=== PATIENT | female | born 1975 | race African-American/Black ===

== ENCOUNTER 2019-10-06 13:14 | Emergency (ER) | payer OTHER ==
[~2019-10-06] VITALS: Ht 165.1 cm; Wt 108.9 kg
[~2019-10-06 13:14] MED LIST: CITRATE OF MAG296 ML PO; NOHOMEMEDICATIONS; NORCO 5-325 TA1 EACH PO; ZOFRAN ODT4 MG PO
[2019-10-06] MEDS ORDERED: TRIAMTERENE-HC1 EAC2 PO (14:06)
[2019-10-06] MEDS ORDERED: IBU800 MG PO (14:07)
[2019-10-06 14:21] LABS: URINE BILIRUBIN NEGATIVE (Negative); URINE BLOOD NEGATIVE (Negative); URINE CLARITY CLEAR; URINE COLOR YELLOW; URINE GLUCOSE-RANDOM* 3+ (Negative); URINE KETONES NEGATIVE (Negative); URINE LEUKOCYTES-REFLEX NEGATIVE (Negative); URINE NITRITE-REFLEX NEGATIVE (Negative); URINE PROTEIN (DIPSTICK) NEGATIVE (Negative); URINE UROBILINOGEN 0.2 E.U./dl (0.2-1.0)
[2019-10-06 14:43] LABS: ABSOLUTE NEUTROPHILS 4.5 thou/uL (1.4-8.2); EOSINOPHILS 2.4 % (0.0-3.0); HEMATOCRIT 38.1 % (37.0-47.0); HEMOGLOBIN 12.9 gm/dL (12.0-15.0); MCH 30.3 pg (26.0-34.0); MCV 89.1 fL (80.0-100.0); MONOCYTES 7.1 % (1.0-8.0); PLATELET COUNT 303 thou/uL (150-400); POLYS 62.5 % (36.0-66.0); RBC 4.28 mil/uL (4.20-5.00); RDW 13.1 % (10.5-14.5); WBC 7.2 thou/uL (4.0-11.0)
[2019-10-06 14:50] LABS: ANION GAP 7 mmol/L (7-16); BUN 11 mg/dL (7-18); CHLORIDE 95 mmol/L (98-107); CO2 26 mmol/L (21-32); CREATININE 0.9 mg/dL (0.6-1.0); GLUCOSE 402 mg/dL (74-106); POTASSIUM 3.8 mmol/L (3.5-5.1); SODIUM 128 mmol/L (136-145)
[2019-10-06 14:59] LABS: ALBUMIN 3.5 g/dL (3.4-5.0); SGOT 12 U/L (15-37); SGPT 11 U/L (30-65); TOTAL BILIRUBIN 0.3 mg/dL (<0.1-1.0); TROPONIN-I <0.06 ng/mL (<0.06)
--- NOTE | 2019-10-06 15:55 | EKG ---
[facility] [place] [address] ELECTROCARDIOGRAM REPORT Name: SHELLIE COHEN Room #: [facility]#: [id number] Admission: 10/06/19 Attend Phys: Discharge: Date of : 71 Report #: [id number] THIS REPORT FOR: cc: Catherine Schulte MD, Cora A. MD Lundgren, Craig H. MD [facility] ~ THIS REPORT FOR: //name// [facility] ED Test Date: 2019-10-06 Test Time: 14:07:30 Pat Name: SHELLIE COHEN Department: Room: Gender: F Cook Helper: VALERIA : 1975 Requested By: Candy Ely Order Number: [id number] MD: Scar Eddy Measurements Intervals [place] Rate: 80 P: 46 W[place]: 155 QRS: 20 QRSD: 85 T: 12 QT: 395 QTc: 456 Interpretive Statements Sinus rhythm Normal Compared to ECG 08/18/2015 21:03:42 T-wave abnormality no longer present Electronically Signed On 10-06-2019 15:53:53 CDT by Scar Eddy [email or web address] <ELECTRONICALLY SIGNED> By: Scar Eddy MD, [facility] 10/06/19 1553 [id number] 140 Scar Eddy MD, [facility] /EPI
[2019-10-06] MEDS ORDERED: METFORMIN HCL500 MG PO (17:17)
[2019-10-06 17:54] VITALS: BP 119/80
== END 2019-10-06 17:54 | disposition home or self-care (01) ==
LOC: ER 13:14
PROVIDERS: Physician Assistant
DX: R53.1 Weakness (principal); R55 Syncope and collapse; R42 Dizziness and giddiness; R20.0 Anesthesia of skin; R20.2 Paresthesia of skin; R51 Headache; R25.1 Tremor, unspecified; I10 Essential (primary) hypertension; Z79.899 Other long term (current) drug therapy

== ENCOUNTER 2020-03-30 19:17 | Emergency (ER) | payer OTHER ==
[~2020-03-30] VITALS: Ht 162.6 cm; Wt 108.9 kg
[~2020-03-30 19:17] MED LIST changes: +IBU800 MG PO; +METFORMIN HCL500 MG PO; +TRIAMTERENE-HC1 EAC2 PO
[2020-03-30 20:54] VITALS: BP 120/81
== END 2020-03-30 20:56 | disposition home or self-care (01) ==
LOC: ER 19:17
DX: J02.9 Acute pharyngitis, unspecified (principal); Z20.828 Contact with and (suspected) exposure to other viral communicable diseases; Z79.899 Other long term (current) drug therapy

== ENCOUNTER 2021-04-27 21:50 | Emergency (ER) | payer OTHER ==
[~2021-04-27] VITALS: Ht 165.1 cm; Wt 104.3 kg
[2021-04-27 21:56] VITALS: BP 178/96
[2021-04-27] MEDS ORDERED: ADVIL200 M1 PO (22:01)
[2021-04-27] MEDS ORDERED: NORCO5 PO (22:27)
[2021-04-27] MEDS ORDERED: AUGMENTIN 875-1 EACH PO (22:27)
[2021-04-28] MEDS ORDERED: NORCO5 PO (08:05)
== END 2021-04-27 22:44 | disposition home or self-care (01) ==
LOC: ER 21:50
DX: K08.89 Other specified disorders of teeth and supporting structures (principal); R51.9 Headache, unspecified; Z87.442 Personal history of urinary calculi; Z79.1 Long term (current) use of non-steroidal anti-inflammatories (NSAID); Z79.899 Other long term (current) drug therapy